=== PATIENT | female | born 1970 ===

== ENCOUNTER 2017-02-22 19:15 | Emergency (ER) | payer SELFPAY ==
[2017-02-22 19:15] VITALS: BMI 23.2
[2017-02-22 19:31] VITALS: BP 124/78; PULSE 87; RESP 20; TEMP 98.1; O2SAT 100
--- NOTE | 2017-02-22 19:54 | C.PDOC ---
History Of Present Illness 46 y/o female complaining of sore throat and cough x4 days. Denies sick contacts , recent travel, shortness of breath, chest pain, or fever. No other complaints at this time. Time Seen by Provider: 02/22/17 19:35 Chief Complaint (Nursing): Cough, Cold, Congestion History Per: Patient History/Exam Limitations: no limitations Onset/Duration Of Symptoms: Days (4) Current Symptoms Are (Timing): Still Present Location Of Pain: Throat Associated Symptoms: Sore Throat, Cough, Myalgias. denies: Fever, Chills, Sputum, Neck Pain, Sinus Drainage, Nasal Congestion, Nausea, Vomiting, Diarrhea Severity: Moderate Recent travel outside of the [place]: No Additional History Per: Patient Past Medical History Reviewed: Historical Data, Nursing Documentation, Vital Signs Vital Signs: Last Vital Signs Temp 98.1 F 02/22/17 19:29 Pulse 87 02/22/17 19:29 Resp 20 02/22/17 19:29 BP 124/78 02/22/17 19:29 Pulse Ox 100 02/22/17 20:05 - Medical History PMH: No Chronic Diseases Surgical History: No Surg Hx Family History: States: Unknown Family Hx - Social History Hx Tobacco Use: No Hx Alcohol Use: No Hx Substance Use: No - Immunization History Hx Tetanus Toxoid Vaccination: No Hx Influenza Vaccination: No Hx Pneumococcal Vaccination: No Review Of Systems Except As Marked, All Systems Reviewed And Found Negative. Constitutional: Negative for: Fever, Chills, Malaise ENT: Positive for: Throat Pain Respiratory: Negative for: Cough, Shortness of Breath Physical Exam - Physical Exam Appears: Well, No Acute Distress Skin: Normal Color, Warm, Dry Eye(s): bilateral: Normal Inspection, PERRL, EOMI Ear(s): Bilateral: Normal Nose: Normal, No Discharge Oral Mucosa: Moist Throat: Normal Neck: Normal, Supple Cardiovascular: Rhythm Regular Respiratory: Normal Breath Sounds, No Wheezing Gastrointestinal/Abdominal: Normal Exam Back: Normal Inspection Extremity: Normal ROM Neurological/Psych: Oriented x3 ED Course And Treatment O2 Sat by Pulse Oximetry: 100 (RA) Pulse Ox Interpretation: Normal Medical Decision Making Medical Decision Making: Impression: URI Patient evaluated, is medically stable, and is comfortable going home. Discussed OTC options for her, and encouraged fluids. She should return with any new/worsening concerns, and follow up with her PMD in their office. All questions answered to the patient's satisfaction. She was discharged in stable condition. Disposition Doctor Will See Patient In The: Office Counseled Patient/Family Regarding: Diagnosis - Disposition Referrals: [facility] [Outside] Disposition: HOME/ ROUTINE Disposition Time: 19:45 Condition: STABLE Prescriptions: Benzonatate [Tessalon Perles] 100 mg PO TID #20 sgl Cetirizine HCl [Zyrtec] 10 mg PO DAILY #20 capsule Ibuprofen [Motrin] 600 mg PO Q6H #30 tab Instructions: Upper Respiratory Infection (ED) Print Language: LATVIAN - Clinical Impression Clinical Impression: Upper respiratory infection, Viral disease - Scribe Statement The provider has reviewed the documentation as recorded by the Scribe Bernadette Mcclure
== END 2017-02-22 20:07 | disposition home or self-care (01) ==
LOC: C.ER 19:15
DX: J06.9 Acute upper respiratory infection, unspecified (principal)

== ENCOUNTER 2017-03-23 22:32 | Emergency (ER) | payer OTHER ==
[2017-03-23 22:32] VITALS: BMI 23.2
[2017-03-23 22:53] VITALS: BP 104/68; PULSE 61; TEMP 98.4; O2SAT 98
--- NOTE | 2017-03-23 23:10 | C.PDOC ---
History Of Present Illness Patient is a 46 year old female who presents to the ER with a complaint of redness to the left eye since yesterday. Notes that if she didnt see it in mirror, she would not know its there. No head trauma. Patient denies vision change, diplopia, itching or straining. Time Seen by Provider: 03/23/17 22:54 Chief Complaint (Nursing): Eye Problem History Per: Patient History/Exam Limitations: no limitations Onset/Duration Of Symptoms: Hrs Current Symptoms Are (Timing): Still Present Injury To Eye?: No Associated Symptoms: denies: Decreased Vision, Itching, Other (Redness. Straining.) Recent travel outside of the [place]: No Past Medical History Reviewed: Historical Data, Nursing Documentation, Vital Signs Vital Signs: Last Vital Signs Temp 98.4 F 03/23/17 22:50 Pulse 61 03/23/17 22:50 Resp 20 03/23/17 23:24 BP 104/68 03/23/17 22:50 Pulse Ox 98 03/23/17 23:50 - Medical History PMH: No Chronic Diseases Surgical History: No Surg Hx Family History: States: Unknown Family Hx - Social History Hx Tobacco Use: No Hx Alcohol Use: No Hx Substance Use: No - Immunization History Hx Tetanus Toxoid Vaccination: No Hx Influenza Vaccination: No Hx Pneumococcal Vaccination: No Review Of Systems Eyes: Positive for: Redness. Negative for: Vision Change, Other (Itchiness. Straining.) Physical Exam - Physical Exam Appears: Non-toxic, No Acute Distress Skin: Normal Color, Warm, Dry Head: Atraumatic, Normacephalic Eye(s): bilateral: Normal Inspection, PERRL, EOMI, left: Other (Subconjunctival hemorrhage to lateral aspect, does not cross limbus) Nose: Normal Oral Mucosa: Moist Neck: Normal, Normal ROM, Supple Chest: Symmetrical Respiratory: No Accessory Muscle Use Neurological/Psych: Oriented x3, Normal Speech, Other (No focal deficits) ED Course And Treatment O2 Sat by Pulse Oximetry: 98 (Room air) Pulse Ox Interpretation: Normal Progress Note: Patients visual acuity is 20/15 bilaterally. Patient instucted to follow up with opthamologist within 2-3 days. Disposition - Disposition Referrals: Ciro Montes MD [Staff Provider] - Disposition: HOME/ ROUTINE Disposition Time: 23:08 Condition: STABLE Additional Instructions: Follow up with your primary medical doctor or clinic in 2-5 days for further evaluation. Return to the emergency department at any time if symptoms persist or worsen. Instructions: Subconjunctival Hemorrhage (ED) - Clinical Impression Clinical Impression: Subconjunctival hemorrhage - Scribe Statement The provider has reviewed the documentation as recorded by the Scribe Tom Ramos All medical record entries made by the Scribe were at my direction and personally dictated by me. I have reviewed the chart and agree that the record accurately reflects my personal performance of the history, physical exam, medical decision making, and the department course for this patient. I have also personally directed, reviewed, and agree with the discharge instructions and disposition.
[2017-03-23 23:24] VITALS: RESP 20
== END 2017-03-23 23:24 | disposition home or self-care (01) ==
LOC: C.ER 22:32
DX: H11.32 Conjunctival hemorrhage, left eye (principal)

== ENCOUNTER 2018-03-22 17:01 | Emergency (ER) | payer OTHER, SELFPAY ==
[2018-03-22 17:01] VITALS: BMI 24.8
[2018-03-22] MEDS ORDERED: Sodium Chloride 0.9% 1,000 ML IV ONE (18:19)
[2018-03-22] MEDS ORDERED: Sodium Chloride 0.9% 1,000 ML ONE (18:28)
[2018-03-22 18:30] LABS: BASO % 0.6 % (0.0-2.0); EOS # 0.1 K/uL (0.0-0.7); EOS % 1.7 % (0.0-4.0); HEMOGLOBIN 11.9 g/dL (11.0-16.0); MEAN CELL VOLUME 91.1 fL (81.0-99.0); MEAN CORPUSCULAR HGB CONC 34.1 g/dL (33.0-37.0); MEAN PLATELET VOLUME 7.8 fL (7.2-11.7); MONO # 0.5 K/uL (0.0-0.8); MONO % 8.1 % (0.0-10.0); NEUT % 44.6 % (50.0-75.0); NRBC % 0.1 % (0.0-2.0); RBC 3.83 Mil/uL (3.80-5.20); RED CELL DISTRIBUTION WIDTH 12.3 % (11.5-14.5); WHITE BLOOD COUNT 6.7 K/uL (4.8-10.8)
[2018-03-22 18:36] LABS: HCG,QUALITATIVE URINE NEGATIVE (NEGATIVE)
[2018-03-22 18:39] LABS: SQUAMOUS EPITHIAL 8 /hpf (0-5); URINE BACTERIA OCC (<OCC); URINE BILIRUBIN NEGATIVE (NEGATIVE); URINE BLOOD 3+ (NEGATIVE); URINE CLARITY Hazy (Clear); URINE COLOR Yellow (YELLOW); URINE GLUCOSE (UA) NORMAL (Normal); URINE LEUKOCYTE ESTERASE NEG Leu/uL (Negative); URINE PROTEIN 1+ mg/dL (NEGATIVE); URINE UROBILINOGEN NORMAL mg/dL (0.2-1.0)
--- NOTE | 2018-03-22 18:43 | C.PDOC ---
History Of Present Illness 47 y/o female presents to the ER complaining of on/off generalized abdominal pain which has been present since 3:00 am in the morning today. Patient states that the pain started in the RLQ and radiated throughout the rest of the abdomen. Patient reports that she took Advil at 7:00 am without relief. Denies having nausea, vomiting, diarrhea, constipation, urinary symptoms, fever, and sick contacts. Of note, patient has a history of irregular periods and her LMP was 3 weeks ago. Time Seen by Provider: 03/22/18 17:35 Chief Complaint (Nursing): Abdominal Pain History Per: Patient History/Exam Limitations: no limitations Onset/Duration Of Symptoms: Hrs Current Symptoms Are (Timing): Still Present Severity: Moderate Associated Symptoms: denies: Fever, Chills, Nausea, Vomiting, Diarrhea, Constipation, Urinary Symptoms Past Medical History Reviewed: Historical Data, Nursing Documentation, Vital Signs Vital Signs: Last Vital Signs Temp 98.6 F 03/22/18 17:14 Pulse 65 03/22/18 17:14 Resp 18 03/22/18 17:14 BP 123/78 03/22/18 17:14 Pulse Ox 99 03/22/18 18:50 - Medical History PMH: No Chronic Diseases Surgical History: No Surg Hx Family History: States: No Known Family Hx - Social History Hx Tobacco Use: No Hx Alcohol Use: No Hx Substance Use: No - Immunization History Hx Tetanus Toxoid Vaccination: No Hx Influenza Vaccination: No Hx Pneumococcal Vaccination: No Review Of Systems Except As Marked, All Systems Reviewed And Found Negative. Constitutional: Negative for: Fever, Chills Gastrointestinal: Positive for: Abdominal Pain. Negative for: Nausea, Vomiting , Diarrhea, Constipation Genitourinary: Negative for: Dysuria, Hematuria Physical Exam - Physical Exam Appears: Non-toxic, Other (uncomfortable) Skin: Normal Color, Warm, Dry Head: Atraumatic, Normacephalic Eye(s): bilateral: Normal Inspection Nose: Normal Oral Mucosa: Moist Neck: Supple Cardiovascular: Rhythm Regular Respiratory: Normal Breath Sounds, No Rales, No Rhonchi, No Wheezing Gastrointestinal/Abdominal: Soft, Tenderness (generalized abdominal tenderness ( greater in RLQ)), Guarding, No Rebound Neurological/Psych: Oriented x3, Normal Speech ED Course And Treatment - Laboratory Results Result Diagrams: 03/22/18 18:27 03/22/18 18:27 Lab Interpretation: Normal (ua + scant blood c/w irrigular cycles) Urine POC: Negative O2 Sat by Pulse Oximetry: 99 (RA) Pulse Ox Interpretation: Normal - Other Rad abd x 3 X-Ray: Interpreted by Me (+FOS) Progress Note: Labs, UA, Abd. Obs. Series, IV Fluids, Toradol IV Reevaluation Time: 19:55 Reassessment Condition: Improved Medical Decision Making Medical Decision Making: abd colic, constipation LOW susp of renal colic Disposition Doctor Will See Patient In The: Office Counseled Patient/Family Regarding: Studies Performed, Diagnosis - Disposition Disposition: HOME/ ROUTINE Disposition Time: 19:56 Condition: GOOD Forms: [facility] (Croatian) - Clinical Impression Clinical Impression: Colicky periumbilical abdominal pain - Scribe Statement The provider has reviewed the documentation as recorded by the Scribe Keeley Goodman Provider Attestation: All medical record entries made by the Scribe were at my direction and personally dictated by me. I have reviewed the chart and agree that the record accurately reflects my personal performance of the history, physical exam, medical decision making, and the department course for this patient. I have also personally directed, reviewed, and agree with the discharge instructions and disposition.
[2018-03-22 18:45] LABS: ALB/GLOB RATIO 1.1 (1.0-2.1); ALBUMIN 3.7 g/dL (3.5-5.0); AST/SGOT 22 U/L (14-36); BLOOD UREA NITROGEN 16 mg/dL (7-17); GFR AFRICAN-AMERICAN > 60; GFR NON-AFRICAN AMERICAN > 60; LIPASE 75 U/L (23-300)
[2018-03-22 18:53] LABS: ALT/SGPT 17 U/L (9-52); CALCIUM 8.6 mg/dl (8.6-10.4)
[2018-03-22 20:19] VITALS: BP 120/78; PULSE 78; RESP 20; TEMP 98.2; O2SAT 98
--- NOTE | 2018-03-23 08:31 | RAD ---
Abdomen four views History: Abdominal pain. Comparison: None available. Findings: Lung ames are clear. Heart size within normal limits. Bibasilar breast and nipple shadows. Small nodular density at the left lung base may represent confluence of shadows with ribs and vessels. Fecal retention in the colon. No evidence for gross obstruction. Impression: Fecal retention in the colon. No evidence for gross obstruction.
== END 2018-03-22 20:17 | disposition home or self-care (01) ==
LOC: C.ER 17:01
DX: R10.33 Periumbilical pain (principal)
CPT/HCPCS: 74022; 80053; 81001; 83690; 84703; 85025; 87491; 87591; 96374; 99284; J1885; J7030